=== PATIENT | male | born 1950 | race Caucasian/White ===

== ENCOUNTER → 2018-02-16 13:03 | Outpatient (CLI) | payer MEDICARE, BC ==
[2013-08-13 06:25] VITALS: BMI 29.9
--- NOTE | ~2018-02-16 | EC ---
PATIENT:JESSE CHIN DATE OF SERVICE: 02/16/18 SEX: M MEDICAL RECORD: [id number] DATE OF : [birth year] LOCATION:[facility] AGE OF PATIENT: 67 ADMISSION DATE: 02/16/18 REFERRING PHYSICIAN: INTERPRETING PHYSICIAN: MARI MACEDO MD ECHOCARDIOGRAM REPORT ECHO CHARGES 4 ECHO COMPLETE Date: 02/16 CLINICAL DIAGNOSIS: ATRIAL FIB,PALPS,SYNCOPE ECHOCARDIOGRAPHIC MEASUREMENTS (adult normal given) AC root (d.<3.7cm) 3.7 cm LV Septum d (<1.2 cm> 1.2 cm Valve Excursion 1.5 cm LV Septum (systole) 1.3 cm Left Atria (s.<4.0cm> 3.8 cm LVPW d(<1.2cm) 1.3 cm RV (d.<2.3cm) 3.3 cm LVPW (sytole) 1.8 cm LV diastole(<5.6CM) 4.9 cm MV E-F(>70mm/sec) cm LV systole 3.4 cm LVOT Diameter 1.8 cm MV exc.(>10mm) 1.0 cm Est.ejection fraction (50-75%) % DOPPLER: LVIT cm/sec A 113 cm/sec E 75.0 cm/sec LA cm/sec RVSP 31 mmHg LVOT 138 cm/sec AOP1/2T m/s Asc. Ao 189 cm/sec RVOT 104 cm/sec RA cm/sec PA 121 cm/sec AV Gradient Peak 14.26mmHg AV Mean 6.93 mmHg AV Area 2.0 cm MV Gradient Peak 5.69 mmHg MV Mean 1.99 mmHg MV Area cm COMMENTS: Zinc Skimmer: Jaquan CASTELLANOS Construction Accountant: Osorio Macedo TAPE# PACS Pericardial Effusion N DATE OF SERVICE: 02/16/2018 PROCEDURE: Transthoracic echocardiogram. FINDINGS: 1. Left ventricle is hyperdynamic. Ejection fraction is 65% to 70%. 2. The mitral valve is not well visualized, but appears to be overall normal. Inflow characteristics into the left ventricle are normal. 3. The aortic valve appears to be slightly thickened without stenosis. 4. The tricuspid valve is not well visualized, but appears to be grossly ECHOCARDIOGRAM REPORT [id number] JESSE CHIN normal. 5. Pulmonic valve is not well visualized. 6. The right-sided structures appeared to be normal size and structure. CONCLUSIONS: This is difficult to see echocardiogram, but overall appears to be normal function, normal valvular status. No pericardial effusion. No obvious thrombus. There is a suggestion of diastolic dysfunction, however, and mild left ventricular hypertrophy consistent with hypertensive heart disease. Overall, ejection fraction is 65% to 70%. TRANSINT:[id number] Voice Confirmation ID: [id number] DOCUMENT ID: [id number] MARI MACEDO MD at 1426 CC: [id number] DICTATION DATE: 02/18/18 0751 ANALOG CIRCUIT DESIGNER: 02/18/18 0937 DEP CLI 02/16/18 [id number] [place] [address]
[~2018-02-16 13:03] MED LIST: AGGRENOX 200/251 CAP; CLARITIN 10 MG10 MG PO; HYDROCORTISONE30 G8 TP; NAPROSYN500 MG PO; NIFEDIPINE ER; ULTRAM50 MG PO; VENTOLIN HFA18 GM INH; VITAMIN B-121000 MC3 PO; ZESTRIL40 MG PO; ZOLOFT100 MG PO
[2018-03-02 07:27] VITALS: BMI 29.7
== END | disposition home or self-care (01) ==
LOC: D.ECHO 13:03
DX: I48.0 Paroxysmal atrial fibrillation (principal); R55 Syncope and collapse; R09.89 Other specified symptoms and signs involving the circulatory and respiratory systems; Z86.73 Personal history of transient ischemic attack (TIA), and cerebral infarction without residual deficits; R00.2 Palpitations

== ENCOUNTER → 2018-02-18 16:00 | Outpatient (CLI) | payer MEDICARE, BC ==
[2013-08-13 06:25] VITALS: BMI 29.9
[2018-02-18 16:56] LABS: CHOL - HDL RATIO 3.3 ratio (2.3-4.9); LDL-HDL RATIO 1.9 ratio (1.5-3.5)
[2018-03-02 07:27] VITALS: BMI 29.7
== END | disposition home or self-care (01) ==
LOC: D.LABREF 16:00
PROVIDERS: Internal Medicine Cardiovascular Disease
DX: E78.5 Hyperlipidemia, unspecified (principal)

== ENCOUNTER 2018-03-02 07:58 | Outpatient (CLI) | payer MEDICARE, BC ==
[~2018-03-02] VITALS: Ht 182.9 cm; Wt 99.5 kg
--- NOTE | ~2018-03-02 | HEMODYNAMI ---
PATIENT:JESSE CHIN MEDICAL RECORD: [id number] : 46 LOCATION:[facility] ADMISSION DATE: 03/02/18 Generatedon:03/02/20189:15 Patient name: JESSE CHIN Patient #: [id number] SSN: : 1950 Date of study: 03/02/2018 Page: Of Hemodynamic Procedure Report Patient Data Patient Demographics Procedure consent was obtained First Name: JESSE Gender: Male Last Name: GIUSEPPE : 1950 Middle Initial: KYA Age: 67 year(s) Patient #: [id number] Race: Unknown Additional ID: [id number] Contact details Address: [address] [place] [address] State: [place] City: [facility] Zip code: [address] Past Medical History Allergies Allergen Reaction Date Comments Reported Other allergy 03/02/2018 PCN, Beef, [place], Dust, Mold Admission Admission Data Admission Date: 03/02/2018 Admission Time: 7:58 Lab Results Lab Result Date: 03/02/2018 Lab Result Time: 7:35 Biochemistry Name Units Result Min Max BUN mg/dl 14 --(--*-)-- 7 18 Creatinine mg/dl 1.1 --(--*-)-- 0.6 1.3 CBC Name Units Result Min Max Hematocrit % 40.2 -*(----)-- 42 54 Hemoglobin g/dl 13.1 -*(----)-- 13.5 17.5 Procedure Procedure Types Cath Procedure Diagnostic Procedure LHC LHC w/Coronaries Procedure Description Procedure Date Procedure Date: 03/02/2018 Procedure Start Time: 9:06 Procedure End Time: 9:14 Procedure Staff Name Function Praful Montilla MD Performing Physician Red Haddad RT Monitor Bernardino Goodman RN Nurse Modesta Philip RT Scrub Procedure Data Cath Procedure Fluoroscopy Diagnostic fluoroscopy Total fluoroscopy Time: 1.5 time: 1.5 min min Diagnostic fluoroscopy Total fluoroscopy dose: 294 dose: 294 mGy mGy Contrast Material Contrast Material Type Amount (ml) Isovue 300 28 Entry Location Entry Primary Successful Side Size Upsize Upsize Entry Closure Bentley ccessful Closure Location (Fr) 1 (Fr) 2 (Fr) Remarks Device Remarks Radial Right 6 Fr Mechanical artery Short Compression Estimated blood loss: 5 ml Diagnostic catheters Device Type Used For End Catheter Placement DIAGNOSTIC Kwabena 110cm Procedure 5Fr catheter ([id number]) Procedure Complications No complications Procedure Medications Medication Administration Route Dosage 0.9% NaCl I.V. 100 ml/hr Oxygen etCO2 Nasal cannula 2 l/min Heparin Flush Bag added to field 1 bags (1000units/500ml NS) Lidocaine 2% added to field 20 Radial Cocktail added to field 1 syringe (Verapomil 2mg/Nitro 400mcg/Heparin 1500units) Versed I.V. 1 mg Fentanyl I.V. 50 mcg Radial Cocktail I.A. 1 syringe (Verapomil 2mg/Nitro 400mcg/Heparin 1500units) Hemodynamics Rest HGB: 13.1 (g/dl) Heart Rate: 77 (bpm) Pressure Samples Time Site Value (mmHg) Purpose Heart Use Rate(bpm) 9:09 LV 141/-11,5 EDP 88 Gradients Valve Time Site Site Mean SEP/DFP Peak To Heart Use 1 2 (mmHg) (sec/min) Peak Rate (mmHg) (bpm) Aortic 9:10 LV AO 98 Snapshots Pre Cath Intra NCS Post Cath Vital Signs Time Heart Resp SPO2 etCO2 NIBP (mmHg) Rhythm Pain Sedation Rate (ipm) (%) (mmHg) Status Level (bpm) 8:47:40 78 16 97 21.9 169/100(146) NSR 0 (11) 10(A) , No pain 8:52:33 78 17 96 32.6 153/95(127) NSR 0 (11) 10(A) , No pain 8:57:26 76 25 94 9 151/88(127) NSR 0 (11) 10(A) , No pain 9:02:21 76 14 94 22 135/85(104) NSR 0 (11) 10(A) , No pain 9:07:14 81 13 95 0.7 149/85(120) NSR 0 (11) 9(A) , No pain 9:12:05 83 13 94 34.9 136/79(102) NSR 0 (11) 10(A) , No pain Medications Time Medication Route Dose Verified Delivered Reason Notes Effectiveness by by 8:59:53 0.9% NaCl I.V. 100 Bernardino Bernardino Per ml/hr Rex Goodman physician RN RN 9:00:04 Oxygen etCO2 2 l/min Bernardino Bernardino Per Nasal Rex Goodman physician cannula RN RN 9:00:18 Heparin Flush added 1 bags Bernardino Bernardino for local Bag to Lorigan Lorigan anesthetic (1000units/500ml field RN RN NS) 9:00:34 Lidocaine 2% added 20ml Bernardino Bernardino for local to vial Lorigan Lorigan anesthetic field RN RN 9:00:53 Radial Cocktail added 1 Bernardino Bernardino used for (Verapomil to syringe Lorigan Lorigan procedure 2mg/Nitro field RN RN 400mcg/Heparin 1500units) 9:06:20 Versed I.V. 1 mg Bernardino Bernardino for sedation Rex Goodman RN RN 9:06:28 Fentanyl I.V. 50 mcg Bernardino Bernardino for sedation Rex Goodman RN RN 9:08:27 Radial Cocktail I.A. 1 Bernardino Bernardino for (Verapomil syringe Lorigan Lorigan vasodilation 2mg/Nitro RN RN 400mcg/Heparin 1500units) Procedure Log Time Note 8:21:02 Time tracking: Regular hours 8:21:05 Plan of Care:Hemodynamics will remain stable., Cardiac rhythm will remain stable., Comfort level will be maintained., Respiratory function will remain adequate., Patient/ family verbilizes understanding of procedure., Procedure tolerated without complication., Recovers from procedure without complications.. 8:36:17 Bernardino Goodman RN sent for patient. Start room use. 8:39:05 Patient received from Pre/Post Procedure Room to CCL 1 Alert and oriented. Tansferred to table in Supine position. 8:39:06 Warm blankets applied, and carson hugger turned on for patient comfort. 8:39:06 Correct patient and procedure confirmed by team. 8:39:07 Signed procedure consent form obtained from patient. 8:46:29 ECG and BP/O2 sat monitors applied to patient. 8:46:30 Baseline sample Acquired. 8:46:30 Vital chart was started 8:58:41 Baseline sample Acquired. 8:58:44 Rhythm: sinus rhythm 8:58:45 Full Disclosure recording started 8:58:53 H&P Date Dictated: 02/25/2018 Within 30 days and on chart., H&P Addendum completed by physician on day of procedure. (MUST COMPLETE FOR ALL OUTPATIENTS). 8:58:55 Pre-procedure instructions explained to patient. 8:58:55 Pre-op teaching completed and patient verbalized understanding. 8:58:56 Family in waiting room. 8:58:58 Patient NPO since Midnight. 8:59:17 Patient allergic to Other allergyPCN, Beef, [place], Dust, Mold 8:59:20 Is the patient allergic to Iodine/contrast media? No. 8:59:22 Is patient on blood thinner?Yes 8:59:24 ACC The patient was administered the following blood thiners within the last 24 hours: ACCPlavix 8:59:25 Patient diabetic? No. 8:59:29 Previous problem with sedation/anesthesia? No ? 8:59:29 Snore? Yes 8:59:30 Sleep apnea? Yes 8:59:31 Deviated septum? No 8:59:32 Opens mouth fully? Yes 8:59:33 Sticks out tongue? Yes 8:59:34 Airway obstruction? No ? 8:59:35 Dentures? No ? 8:59:38 Modified Avel's test Ulnar < 7 seconds 8:59:40 Patient pain scale 0/10 ?. 8:59:46 IV patent on arrival in left forearm with 0.9% NaCl at [facility] 8:59:53 0.9% NaCl 100 ml/hr I.V. was administered by Bernardino Goodman RN; Per physician; 9:00:04 Oxygen 2 l/min etCO2 Nasal cannula was administered by Bernardino Goodman RN; Per physician; 9:00:18 Heparin Flush Bag (1000units/500ml NS) 1 bags added to field was administered by Bernardino Goodman RN; for local anesthetic; 9:00:34 Lidocaine 2% 20ml vial added to field was administered by Bernardino Goodman RN; for local anesthetic; 9:00:36 Lab Result : Creatinine 1.1 mg/dl 9:00:36 Lab Result : BUN 14 mg/dl 9:00:36 Lab Result : Hemoglobin 13.1 g/dl 9:00:36 Lab Result : Hematocrit 40.2 % 9:00:39 Lab results completed and on chart. 9:00:41 Right Radial & Right Groin area was prepped with chlora-prep and draped in sterile fashion 9:00:42 Alarms reviewed by R. N. 9:00:43 Sharps counted by scrub and verified by R.N. 9:00:45 Use device set Radial Dx or PCI 9:00:46 ACIST Syringe (47216) opened to sterile field. 9:00:46 Medline Cath Pack ([id number]) opened to sterile field. 9:00:47 Bag Decanter (2002S) opened to sterile field. 9:00:49 ACIST Hand Control (43547) opened to sterile field. 9:00:50 ACIST Manifold (57214) opened to sterile field. 9:00:50 Tegaderm 4 x 4 (1626W) opened to sterile field. 9:00:51 MBrace Wrist Support ([id number]) opened to sterile field. 9:00:53 Radial Cocktail (Verapomil 2mg/Nitro 400mcg/Heparin 1500units) 1 syringe added to field was administered by Bernardino Goodman RN; used for procedure; 9:00:54 DIAGNOSTIC WIRE .035 260cm J wire (407764) opened to sterile field. 9:01:05 SHEATH 6Fr Prelude Radial ([id number]) opened to sterile field. 9:01:50 Physician arrived 9:01:51 --------ALL STOP TIME OUT------ 9:01:51 Final Timeout: patient, procedure, and site verified with staff and physician. All members of the team are in agreement. 9:01:53 Right Radial & Right Groin site verified by team. 9:01:55 Physical assessment completed. ASA score P 2 - A patient with mild systemic disease as per Praful Montilla MD. 9:01:58 Sedation plan: IV Moderate Sedation Medication:Versed, Fentanyl 9:06:08 Zero performed for pressure channel P1 9:06:20 Versed 1 mg I.V. was administered by Bernardino Goodman RN; for sedation; 9:06:23 Procedure started. 9:06:26 Local anesthetic to right radial artery with Lidocaine 2% by Praful Montilla MD.INITIAL ACCESS ONLY 9:06:28 Fentanyl 50 mcg I.V. was administered by Bernardino Goodman RN; for sedation; 9:06:50 A 6 Fr Short sheath was inserted into the Right Radial artery 9:06:55 Zero performed for pressure channel P1 9:08:27 Radial Cocktail (Verapomil 2mg/Nitro 400mcg/Heparin 1500units) 1 syringe I.A. was administered by Bernardino Goodman RN; for vasodilation; 9:08:47 A DIAGNOSTIC Kwabena 110cm 5Fr catheter (014657) was advanced over the wire and used for Procedure. 9:09:34 LV gram done using FELTON 9::37 Injector settings: Ml/sec: 12, Volume: 8, 9:10:16 EF : 60 % 9:10:36 RCA angiography performed. 9:11:34 LCA angiography performed. 9:12:02 Catheter removed. 9:12:16 TR BAND Standard ([id number]) opened to sterile field. 9:12:29 Sheath removed intact; hemostasis achieved with Mechanical Compression to the Right Radial artery. 9:12:31 Procedure ended.(Physican Out) 9:12:39 Fluoroscopy time 01.50 minutes. 9:12:50 Fluoroscopy dose: 294 mGy 9:12:50 Flurop Dose total: 294 9:13:10 Contrast amount:Isovue 300 28ml. 9:13:25 Sharps counted by scrub and verified by R.N. 9:13:27 TR band inflated with 11cc of air. 9:13:28 Insertion/operative site no bleeding no hematoma. 9:13:36 Post right radial artery:stable, soft, clean and dry 9:13:37 Post Procedure Pulses reassessed and unchanged 9:13:40 Post-procedure physical assessment completed. ASA score P 2 - A patient with mild systemic disease as per Praful Montilla MD. 9:13:41 Post procedure rhythm: unchanged. 9:13:44 Estimated blood loss: 5 ml 9:13:45 Post procedure instruction explained to patient.Patient verbalizes understanding. 9:13:47 Patient needs reinforcement of post procedure teaching. 9:14:27 Procedure and supply charges have been captured, reviewed, submitted and are correct. 9:14:29 Procedure Complication : No complications 9:14:32 Vital chart was stopped 9:14:33 See physician's report for complete and final results. 9:14:35 Report given to Pre/Post Procedure Room. 9:14:37 Patient transfered to Pre/Post Procedure Room with Stretcher. 9:14:40 Procedure ended. 9:14:40 Full Disclosure recording stopped 9:14:46 End room use (Document Last) Device Usage Item Name Manufacture Quantity Catalog Number Hospital Part Current M inimal Lot# / Charge Number Stock Stock Serial# Code ACIST Syringe Acist 1 94278 126792 999436 [id number] 2 0 (52508) [employer] Medline Cath Cardinal 1 [id number] 064903 48597 303735 5 Pack Health ([id number]) Bag Decanter Microtek 1 2001S 616160 21143 793247 5 (2001S) Medical Inc. ACIST Hand Acist 1 25494 682104 519981 222588 5 Control (45758) [employer] Inc ACIST Manifold Acist 1 67081 409801 252101 733314 5 (00413) [employer] Inc Tegaderm 4 x 4 3M 1 1626W 022022 227137 662973 5 (1626W) MBrace Wrist Advanced 1 140-0250-00 899553 44338 500711 5 Support Vascular ([id number]) Dynamics DIAGNOSTIC WIRE [facility] [place] 1 972142 570615 831444 392315 3 0 .035 260cm J wire (196257) SHEATH 6Fr Merit 1 [id number] 995294 501451 070179 5 Prelude Radial Medical ([id number]) DIAGNOSTIC Terumo 1 40-7526 648454 501805 708158 5 Kwabena 110cm 5Fr catheter (007472) TR BAND Terumo 1 [id number] 594132 506630 845791 4 0 Standard ([id number]) Signature Audit [place] Stage Time Signature Unsigned Intra-Procedure 03/02/2018 Red Haddad 9:15:52 AM RT(R) Signatures Monitor : Red Haddad RT Signature : Date : Time : [facility] [address] [place] [address]
[2018-03-02 07:27] VITALS: BP 136/88; Ht 182.9 cm; Wt 99.5 kg
[2018-03-02 07:50] LABS: BASOPHILS 1.6 % (0-2); EOSINOPHILS 0.3 % (0-7); HEMATOCRIT 40.2 % (42.0-54.0); HEMOGLOBIN 13.1 g/dL (13.5-17.5); IMMATURE GRANULOCYTES 8.6 % (0-5); LYMPHOCYTES 14.9 % (15-50); MCH 30.5 pg (26.0-34.0); MCHC 32.6 g/dL (31.0-37.0); MCV 93.5 fL (80.0-100.0); MEAN PLATELET VOLUME 11.5 fL (7.4-10.4); MONOCYTES 7.7 % (2-11); NEUTROPHILS 66.9 % (40-80); RDW 16.2 % (11.5-14.5); WBC 8.7 10x3/uL (4.8-10.8)
[2018-03-02 07:55] LABS: PLATELET COUNT 127 10x3/uL (130-400)
[2018-03-02 08:05] LABS: ANION GAP 14.4 mmol/L (8-16); CALCIUM 8.1 mg/dL (8.5-10.1); CARBON DIOXIDE 25.6 mmol/L (21.0-32.0); CREATININE - SERUM 1.1 mg/dL (0.6-1.3)
== END 2018-03-02 12:00 | disposition home or self-care (01) ==
LOC: D.CATH 07:58
PROVIDERS: Internal Medicine Cardiovascular Disease
DX: R07.9 Chest pain, unspecified (principal); I48.91 Unspecified atrial fibrillation; J44.9 Chronic obstructive pulmonary disease, unspecified; R55 Syncope and collapse; R94.39 Abnormal result of other cardiovascular function study; Z01.812 Encounter for preprocedural laboratory examination

== ENCOUNTER → 2018-04-27 17:22 | Outpatient (CLI) | payer MEDICARE, BC ==
[2018-03-02 07:27] VITALS: BMI 29.7
[2018-04-27 19:48] LABS: CHOL - HDL RATIO 2.3 ratio (2.3-4.9)
== END | disposition home or self-care (01) ==
LOC: D.LABREF 17:22
PROVIDERS: Internal Medicine Cardiovascular Disease
DX: Z00.00 Encounter for general adult medical examination without abnormal findings (principal); I10 Essential (primary) hypertension

== ENCOUNTER → 2019-02-02 09:26 | Outpatient (CLI) | payer MEDICARE, BC ==
[2018-03-02 07:27] VITALS: BMI 29.7
== END | disposition home or self-care (01) ==
LOC: D.RAD 09:26
PROVIDERS: ATTEND Otolaryngology
DX: R13.10 Dysphagia, unspecified (principal)